=== PATIENT | male | born 1985 | race Two or more races ===

== ENCOUNTER → 2024-08-20 | Outpatient (CLI) | payer MEDICAID, SELFPAY ==
--- NOTE | 2024-08-20 10:07 | XR_ITS ---
Examination: Esophagram standard Fluoroscopy 13 spot fluoroscopic films of the esophagus Upright PA chest single view Soft tissue lateral neck single view Exam date and time: August 20, 2024 1131 hours INDICATIONS: Difficulty swallowing tightness in the throat 5 months TECHNIQUE AND FINDINGS: Upright PA chest single view demonstrates normal heart size, lungs are clear Soft tissue lateral neck demonstrates significant epiglottis, clinical correlation advised Patient swallowed thin barium with 13 spot fluoroscopic films of the esophagus obtained Primary peristaltic esophageal waves noted No constricting esophageal lesion Mild intermittent gastroesophageal reflux. There is no stricture the gastroesophageal junction IMPRESSION: Mild intermittent gastroesophageal reflux Epiglottis is thickened, clinical correlation advised Given this finding and the patient's presentation, recommend CT soft tissue neck post intravenous contrast follow-up
== END | disposition home or self-care (01) ==
PROVIDERS: PCP Nurse Practitioner Family; Referring Provider Nurse Practitioner Family; Visit Provider Nurse Practitioner Family
DX: K21.9 Gastro-esophageal reflux disease without esophagitis (principal)
CPT/HCPCS: 74220

== ENCOUNTER → 2024-09-23 | Outpatient (CLI) | payer MEDICAID, SELFPAY ==
--- NOTE | 2024-09-23 15:30 | XR_ITS ---
Examination: CT soft tissue neck, with intravenous contrast. 2-D coronal reconstructions. 2-D sagittal reconstructions. Date and time of exam :September 23, 2024 1603 hours INDICATIONS: Diagnosis acute epiglottitis without obstruction, difficulty swallowing solids 8 months. CTDI: vol (mGy):11.6 DLP: (mGycm):354 Technique: 1.25 mm axial sections of the neck of the obtained. Coronal and sagittal reconstructions have been obtained. Intravenous contrast administered 60 cc [id number]. Low dose protocols were performed. One or more of the following dose reduction techniques were used; automated exposure control, adjustment of the mA and/or KV according to patient size, use of iterative reconstruction technique. Findings: Symmetrical optic globes Mild mucosal disease in the maxillary antra Symmetrical nasopharynx oropharynx, no tonsillar abscess Bilateral carotid triangle lymph nodes, the largest on the left side 12 mm on the right side 10 mm Submental lymph nodes, the largest on the right side 30 mm The larynx appears normal Thyroid lobes are not enlarged Normal epiglottis No prevertebral soft tissue prominence Air distended upper thoracic esophagus IMPRESSION: Significant cervical lymphadenopathy, clinical correlation and follow-up advised No laryngeal mass Normal epiglottis Air distended upper esophagus, consider standard fluoroscopically guided esophagram follow-up
== END | disposition home or self-care (01) ==
LOC: CCTX 15:05
DX: R59.0 Localized enlarged lymph nodes (principal); K22.9 Disease of esophagus, unspecified
CPT/HCPCS: 70491; A4649; Q9967